=== PATIENT | male | born 1935 | race Caucasian/White ===

== ENCOUNTER 2016-12-26 10:16 | Emergency (ER) | payer MEDICARE, OTHER ==
[2016-12-26] MEDS ORDERED: Sodium Chloride 0.9% 1,000 ML IV SCH (11:15)
--- NOTE | 2016-12-26 11:25 | EDM.PDOC ---
ED HPI GENERAL MEDICAL PROBLEM - General Chief Complaint: Respiratory Problem Stated Complaint: COUGH AND SOB Time Seen by Provider: 12/26/16 10:34 Source of Information: Reports: Patient, Family (), RN Notes Reviewed History Limitations: Reports: No Limitations - History of Present Illness INITIAL COMMENTS - FREE TEXT/NARRATIVE: The patient states that he is scheduled for an anterior cervical discectomy and fusion on 01/18/2017. He underwent a preoperative evaluation on 12/01/2016, which included a chest radiograph. Apparently an infiltrate was seen, and the patient was told that he has pneumonia, per Dajuan Shah, a midlevel for his PCP, Dr. Robles. A repeat chest radiograph on 12/16/2016 apparently showed the infiltrate be larger, therefore the patient was started on Levaquin 500 milligrams daily for 7 days, along with prednisone 20 mg BID for 5 days, followed by 10 mg daily , starting 12/17/2016. The patient just finished his last dose of prednisone today. He is scheduled to have a repeat chest radiograph on 12/28/2016. He states that at no time did he have a fever, cough, shortness of breath, or wheezing. He now presents because he states he has some dyspnea on exertion while climbing stairs last night. Again, still no fever, cough, wheeze, or dyspnea at rest. This morning, he states that he feels fine. Left Chest Pain Score (Numeric/FACES): 4 - Related Data Allergies Allergy/AdvReac Type Severity Reaction Status Date / Time morphine Allergy Hives Verified 12/26/16 10:22 avalox Allergy Other Uncoded 12/26/16 10:28 eggs Allergy Vomiting Uncoded 12/26/16 10:22 Home Meds: Home Meds Acetaminophen [Tylenol] 325 mg PO DAILY 12/26/16 [History] Albuterol Sulfate [Proair Hfa] 1 puff INH Q4H PRN 12/26/16 [History] Albuterol [Proventil Neb Soln] 2.5 mg NEB Q6HRRT PRN 12/26/16 [History] Benzonatate [Tessalon Perles] 100 mg PO DAILY 12/26/16 [History] Budesonide/Formoterol [Symbicort 160-4.5 MCG] 2 puff INH BID 12/26/16 [History] Carvedilol [Coreg] 3.125 mg PO BID 12/26/16 [History] Fluticasone Propionate [Flonase] 1 spray KATIE BID PRN 12/26/16 [History] Incruise 1 puff INH DAILY 12/26/16 [History] Isosorbide Mononitrate [Imdur] 60 mg PO BID 12/26/16 [History] Losartan [Cozaar] 50 mg PO DAILY 12/26/16 [History] Montelukast [Singulair] 10 mg PO BEDTIME 12/26/16 [History] Nitroglycerin [Nitrostat] 0.4 mg SL Q5M PRN 12/26/16 [History] Pantoprazole Sodium [Protonix] 40 mg PO BID 12/26/16 [History] Ranolazine [Ranexa] 500 mg PO BID 12/26/16 [History] Rosuvastatin Calcium [Crestor] 40 mg PO BEDTIME 12/26/16 [History] cycloSPORINE [Restasis] 1 each OP DAILY 12/26/16 [History] Past Medical History Cardiovascular History: Reports: CAD, High Cholesterol, Hypertension, [place] Respiratory History: Reports: COPD Gastrointestinal History: Reports: GERD Genitourinary History: Reports: BPH Oncologic (Cancer) History: Reports: Basal Cell Carcinoma (bilateral ears) - Past Surgical History HEENT Surgical History: Reports: Cataract Surgery Cardiovascular Surgical History: Reports: Coronary Artery Bypass (x 3 vessel 1983, followed by repeat CABG x 3 vessel 1993) Male Surgical History: Reports: TURP-Transurethral Resection of Prostate Neurological Surgical History: Reports: Lumbar Spine (fusion) Dermatological Surgical History: Reports: Other (See Below) (Excision of BCC off bilateral ears) Social & Family History - Tobacco Use Smoking Status *Q: Former Smoker Tobacco Use Within Last Twelve Months: No Years of Tobacco use: 25 Packs/Tins Daily: 1 Month Tobacco Last Used: Quit 1983 - Alcohol Use Alcohol Use History: Yes Alcohol Use Frequency: Socially - Recreational Drug Use Recreational Drug Use: No - Living Situation & Occupation Living situation: Reports: , with Spouse Occupation: Retired ED ROS GENERAL - Review of Systems Review Of Systems: See Below Constitutional: Reports: No Symptoms HEENT: Reports: No Symptoms Respiratory: Reports: No Symptoms Cardiovascular: Reports: No Symptoms Endocrine: Reports: No Symptoms GI/Abdominal: Reports: No Symptoms : Reports: No Symptoms Musculoskeletal: Reports: No Symptoms Skin: Reports: No Symptoms Neurological: Reports: No Symptoms Psychiatric: Reports: No Symptoms Hematologic/Lymphatic: Reports: No Symptoms Immunologic: Reports: No Symptoms ED EXAM, GENERAL - Physical Exam Exam: See Below Exam Limited By: No Limitations General Appearance: Alert, WD/WN, No Apparent Distress Eye Exam: Bilateral Eye: Normal Inspection Ears: Normal External Exam, Hearing Grossly Normal Nose: Normal Inspection, No Blood Throat/Mouth: Normal Inspection, Normal Lips, Normal Voice, No Airway Compromise Head: Atraumatic, Normocephalic Neck: Normal Inspection, Full Range of Motion Respiratory/Chest: No Respiratory Distress, Lungs Clear, Normal Breath Sounds, No Accessory Muscle Use. No: Decreased Breath Sounds, Crackles, Rhonchi, Wheezing, Prolonged Expiration Cardiovascular: Normal Peripheral Pulses, Regular Rate, Rhythm, No Gallop, No JVD, No Murmur, No Rub Peripheral Pulses: 4+: Radial (L), Radial (R) GI/Abdominal: Normal Bowel Sounds, Soft, Non-Tender, No Organomegaly, No Distention, No Abnormal Bruit, No Mass (Male) Exam: Deferred Rectal (Males) Exam: Deferred Back Exam: Normal Inspection, Full Range of Motion, NT Extremities: Normal Inspection, Normal Range of Motion, No Pedal Edema, Normal Capillary Refill Neurological: Alert, Oriented, Normal Cognition, No Motor/Sensory Deficits Psychiatric: Normal Affect Skin Exam: Warm, Dry, Intact, Normal Color, No Rash Lymphatic: No Adenopathy EKG INTERPRETATION EKG Date: 12/26/16 Time: 10:23 Rhythm: NSR Rate (Beats/Min): 66 [place]: Normal P-Wave: Present QRS: Wide (Nonspecific intraventricular conduction delay, likely incomplete RBBB ) ST-T: Normal QT: Normal Comparison: NA - No Prior EKG Course - Vital Signs Last Recorded V/S: Last Vital Signs Temp 36.1 C 12/26/16 10:22 Pulse 58 L 12/26/16 13:30 Resp 20 12/26/16 13:30 BP 130/80 12/26/16 13:30 Pulse Ox 98 12/26/16 13:30 - Orders/Labs/Meds Orders: Active Orders 24 hr Category Date Time Status EKG Documentation Completion [RC] STAT Care 12/26/16 10:41 Active Labs: Laboratory Tests 12/26/16 12/26/16 Range/Units 10:30 10:30 WBC 13.04 H (4.23-9.07) K/mm3 RBC 5.05 (4.63-6.08) M/mm3 Hgb 15.4 (13.7-17.5) gm/L Hct 45.4 (40.1-51.0) % MCV 89.9 (79.0-92.2) fl MCH 30.5 (25.7-32.2) pg MCHC 33.9 (32.2-35.5) g/dl RDW Std Deviation 46.7 H (35.1-43.9) fL Plt Count 241 (163-337) K/mm3 MPV 10.1 (9.4-12.3) fl Neutrophils % (Manual) 72 H (40-60) % Band Neutrophils % 5 (0-10) % Lymphocytes % (Manual) 10 L (20-40) % Atypical Lymphs % 0 % Monocytes % (Manual) 9 (2-10) % Eosinophils % (Manual) 0 L (0.8-7.0) % Basophils % (Manual) 0 L (0.2-1.2) Myelocytes % 4 Platelet Estimate Adequate Plt Morphology Comment Normal Spherocytes Few Stomatocytes Few Schistocytes Few RBC Morph Comment Not Reportable Sodium 137 (136-145) mEq/L Potassium 4.5 (3.5-5.1) mEq/L Chloride 103 (98-107) mEq/L Carbon Dioxide 27 (21-32) mEq/L Anion Gap 11.5 (5-15) BUN 24 H (7-18) mg/dL Creatinine 1.4 H (0.7-1.3) mg/dL Est Cr Clr Drug Dosing 39.36 mL/min Estimated GFR (MDRD) 49 (>60) mL/min BUN/Creatinine Ratio 17.1 (14-18) Glucose 114 (83-115) mg/dL Calcium 8.5 (8.5-10.1) mg/dL Total Bilirubin 0.5 (0.2-1.0) mg/dL AST 22 (15-37) U/L ALT 33 (16-63) U/L Alkaline Phosphatase 52 (46-116) U/L Total Protein 7.2 (6.4-8.2) g/dl Albumin 3.1 L (3.4-5.0) g/dl Globulin 4.1 gm/dL Albumin/Globulin Ratio 0.8 L (1-2) Meds: Medications Discontinued Medications Generic Name Dose Route Start Last Admin Trade Name Freq PRN Reason Stop Dose Admin Sodium Chloride 1,000 mls @ 150 mls/hr 12/26/16 11:15 12/26/16 11:12 Normal Saline IV 150 mls/hr ASDIRECTED VENITA Administration Sodium Chloride 100 mls @ 65 mls/hr 12/26/16 12:00 12/26/16 12:14 Normal Saline IV 40 mls/hr ASDIRECTED VENITA Administration Iopamidol 100 ml 12/26/16 11:52 12/26/16 12:14 [id number] (76%) IVPUSH 12/26/16 11:53 80 ml ONETIME ONE Administration Sodium Chloride 10 ml 12/26/16 11:52 12/26/16 12:14 Saline Flush FLUSH 10 ml ONETIME PRN Administration IV FLUSH - Re-Assessments/Exams Free Text/Narrative Re-Assessment/Exam: 12/26/16 13:14 CT of the chest with IV contrast is read by Dr. Rock as: 1. Small subpleural nodule within the right lung base measuring 3 mm. Recommend follow-up noncontrast chest CT in one year. 2. Emphysematous change. 3. Other incidental findings. 12/26/16 13:22 Test results discussed with the patient and his . Today's workup is grossly unremarkable. There is a 3 mm nodule in the right lung that needs to be followed , but there is no suggestion of a left-sided infiltrate. I do not have access to the chest radiographs that the patient had on 12/01/2016 or 12/14/2016, so I cannot comment on what was seen or thought to be seen at that time, however, infiltrates from pneumonia typically take about one month to clear, therefore in the absence of even a suggestion of an infiltrate at this time, it does not appear that the patient had pneumonia. Departure - Departure Time of Disposition: 13:24 Disposition: Home, Self-Care 01 Condition: Good Clinical Impression: Abnormal chest x-ray - Discharge Information Referrals: Terry Robles MD [Primary Care Provider] - Forms: ED Department Discharge Additional Instructions: You were seen in the emergency room for some shortness of breath last night, and recently being told that you had pneumonia. Workup in the ER included blood work, an ECG, and a CT scan of your chest with IV contrast. Your entire workup was unremarkable. There is no suggestion that you have, or even had, pneumonia. On examination, your lungs were found be clear, with good air movement. You had no fever, and your oxygen saturation was 99% on room air. The CT did find a 3 mm nodule in your right lung that needs to be followed. The Radiologist is recommending that you have a repeat CT scan of your chest, without contrast, in one year. Since your [employer] and [employer] have found you fit for surgery, I see no objection to your proceeding with an anterior cervical discectomy and fusion on 01/18/2017. If any other problems, please do not hesitate to return to the ER. - My Orders Last 24 Hours: My Active Orders 12/26/16 10:41 EKG Documentation Completion [RC] STAT - Assessment/Plan Last 24 Hours: My Active Orders 12/26/16 10:41 EKG Documentation Completion [RC] STAT
[2016-12-26] MEDS ORDERED: Iopamidol 755 Mg/ML 100 ML Bottle IVPUSH ONE (11:52)
[2016-12-26] MEDS ORDERED: Sodium Chloride 0.9% 10 ML Syringe FLUSH PRN (11:52)
[2016-12-26] MEDS ORDERED: Sodium Chloride 0.9% 100 ML IV SCH (12:00)
--- NOTE | 2016-12-26 12:39 | CT ---
CT chest Technique: Multiple axial sections through the chest were obtained. Intravenous contrast was utilized. Comparison: No previous chest imaging. Findings: Small subpleural nodule is identified within the right lung base. This finding measures 3 mm. Lungs otherwise are clear. Emphysematous change is seen. No additional nodule is identified. Atherosclerotic calcification is seen within the thoracic aorta. Previous sternotomy is noted for CABG. No pericardial thickening is seen. Small cyst is noted next to the gallbladder within the right lobe of the liver measuring 1.3 cm. Small hiatal hernia is seen. Other visualized upper abdominal structures appear within normal limits. Bone window settings were reviewed which shows no discrete rib abnormality. Mild degenerative change is noted within the spine. Several slight anterior wedge deformities within the lower thoracic spine are seen which are felt to be incidental. Impression: 1. Small subpleural nodule within the right lung base measuring 3 mm. Recommend follow-up noncontrast chest CT in one year. 2. Emphysematous change. 3. Other incidental findings. Diagnostic code #9
[2016-12-26 15:18] VITALS: BP 130/80
== END 2016-12-26 13:40 | disposition home or self-care (01) ==
LOC: JD.ED 10:16
DX: R93.1 Abnormal findings on diagnostic imaging of heart and coronary circulation (principal); I25.10 Atherosclerotic heart disease of native coronary artery without angina pectoris; E78.00 Pure hypercholesterolemia, unspecified; I10 Essential (primary) hypertension; I25.2 Old myocardial infarction; Z95.1 Presence of aortocoronary bypass graft; Z98.49 Cataract extraction status, unspecified eye; K21.9 Gastro-esophageal reflux disease without esophagitis; J44.9 Chronic obstructive pulmonary disease, unspecified; Z87.891 Personal history of nicotine dependence; Z88.5 Allergy status to narcotic agent; Z91.018 Allergy to other foods; Z79.899 Other long term (current) drug therapy
CPT/HCPCS: 36415; 71260; 80053; 85025; 93005; 96360; 96361; 99285; J7030; J7040; J7050; Q9967; 99284

== ENCOUNTER 2021-02-15 01:40 | Emergency (ER) | payer MEDICARE, OTHER ==
[2021-02-15] MEDS ORDERED: Sodium Chloride 0.9% 10 ML Syringe FLUSH PRN (03:23)
[2021-02-15] MEDS ORDERED: Lactated Ringers 1,000 ML IV SCH (03:30)
--- NOTE | 2021-02-15 05:00 | EDM.PDOC ---
ED HPI GENERAL MEDICAL PROBLEM - General Chief Complaint: Abdominal Pain Stated Complaint: HANG RIZZO AMB Time Seen by Provider: 02/15/21 03:25 - History of Present Illness INITIAL COMMENTS - FREE TEXT/NARRATIVE: Patient arrived ED via ambulance He is accompanied by his Reports normal bowel movement 3 days ago Subsequently has had abdominal bloating and discomfort Has experienced severe waves of pain associated with urge to defecate, but inability to do so Tonight he experienced nausea and chills He has had 2 bowel movements since arrival to ED, with some subjective overall improvement These were both associated with occurrence of severe pain, severity 10/10 Current pain severity is rated 2/10 he is currently receiving chemotherapy for melanoma Abdomen Pain Score (Numeric/FACES): 8 - Related Data Allergies Allergy/AdvReac Type Severity Reaction Status Date / Time morphine Allergy Hives Verified 02/15/21 01:57 avalox Allergy Other Uncoded 02/15/21 01:57 Home Meds: Home Meds Acetaminophen [Tylenol] 325 mg PO DAILY PRN 12/26/16 [History] Albuterol Sulfate [Proair Hfa] 1 puff INH Q4H PRN 12/26/16 [History] Albuterol [Proventil Neb Soln] 2.5 mg NEB Q6HRRT PRN 12/26/16 [History] Benzonatate [Tessalon Perles] 100 mg PO DAILY PRN 12/26/16 [History] Budesonide/Formoterol [Symbicort 160-4.5 MCG] 2 puff INH BID 12/26/16 [History] Fluticasone Propionate [Flonase] 1 spray KATIE BID PRN 12/26/16 [History] Isosorbide Mononitrate [Imdur] 60 mg PO BID 12/26/16 [History] Montelukast [Singulair] 10 mg PO BEDTIME 12/26/16 [History] Nitroglycerin [Nitrostat] 0.4 mg SL Q5M PRN 12/26/16 [History] Pantoprazole Sodium [Protonix] 40 mg PO BID 12/26/16 [History] carvediloL [Coreg] 3.125 mg PO BID 12/26/16 [History] cycloSPORINE [Restasis] 1 drop EYEBOTH DAILY 12/26/16 [History] Aspirin [Halfprin] 81 mg PO DAILY 01/19/19 [History] Rosuvastatin Calcium 20 mg PO MOWEFR 01/19/19 [History] Acyclovir 800 mg PO DAILY 02/15/21 [History] Amoxicillin/Clavulanate K [Augmentin 875-125 MG] 1 tab PO Q8H #25 tab 02/15/21 [Rx] Bortezomib [Velcade] 3.5 mg IM WEEKLY 02/15/21 [History] Clopidogrel Bisulfate [Plavix] 75 mg PO DAILY 02/15/21 [History] dexAMETHasone [Dexamethasone] 5 tab PO WEEKLY 02/15/21 [History] Past Medical History Cardiovascular History: Reports: CAD, High Cholesterol, Hypertension, [place], Stents Respiratory History: Reports: COPD Gastrointestinal History: Reports: GERD Genitourinary History: Reports: BPH Oncologic (Cancer) History: Reports: Basal Cell Carcinoma - Past Surgical History HEENT Surgical History: Reports: Cataract Surgery Cardiovascular Surgical History: Reports: Coronary Artery Bypass Male Surgical History: Reports: TURP-Transurethral Resection of Prostate Neurological Surgical History: Reports: Lumbar Spine Dermatological Surgical History: Reports: Other (See Below) Social & Family History - Tobacco Use Tobacco Use Status *Q: Former Tobacco User Used Tobacco, but Quit: Yes Month/Year Tobacco Last Used: 1983 - Caffeine Use Caffeine Use: Reports: None - Recreational Drug Use Recreational Drug Use: No - Living Situation & Occupation Living situation: Reports: , with Spouse Occupation: Retired ED ROS GENERAL - Review of Systems Review Of Systems: See Below Free Text/Narrative/Comment: Constitutional - no fever; chills Eyes - no eye pain; no visual disturbance ENT - no rhinorrhea; no congestion; no epistaxis Cardiovascular - no chest pain Respiratory - no shortness of breath; no cough Gastrointestinal - abdominal pain; nausea; no vomiting; no diarrhea Genitourinary - no dysuria Musculoskeletal - no neck pain; no back pain; no extremity injury Neurological - no headache; no speech disturbance; no weakness ED EXAM, GENERAL - Physical Exam Exam: See Below Free Text/Narrative:: Constitutional - awake; alert; no acute distress Head - no facial swelling or weakness Eyes - extra ocular motion intact; conjunctiva normal ENT - no nasal deformity; no epistaxis; normal phonation; mucus membranes moist; Neck - no swelling Respiratory - normal respiratory effort; no crackles or wheezing; no stridor Cardiovascular - regular rhythm; normal rate; S1; S2; grade 1/6 systolic murmur GI/Abdomen -diminished bowel sounds; mild to moderate distention; mild, generalized tenderness; no rebound; no guarding; no mass Musculoskeletal - grossly normal strength and motion; no swelling or deformity Skin - warm; dry Neurologic - normal speech; no weakness Psychiatric - normal mood and affect; memory and attention normal Course - Vital Signs Text/Narrative:: . Considered etiologies included: Abdominal pain, nausea, bloating, distention, constipation, bowel obstruction, diverticulitis Symptoms and examination were discussed Investigations were initiated Empiric treatment was provided with IV fluid infusion Results were discussed, with findings for acute diverticulitis Treatment was initiated with IV piperacillin/tazobactam Considerations for inpatient versus outpatient therapy were discussed Patient and felt comfortable with oral antibiotic therapy Amoxicillin/clavulanate was prescribed Patient was felt to be stable for outpatient follow-up Return precautions were provided Last Recorded V/S: Last Vital Signs Temp 36.9 C 02/15/21 09:17 Pulse 74 02/15/21 09:17 Resp 20 02/15/21 09:17 BP 91/39 L 02/15/21 09:17 Pulse Ox 92 L 02/15/21 09:17 - Orders/Labs/Meds Labs: Laboratory Tests 02/15/21 02/15/21 02/15/21 Range/Units 03:50 03:50 03:50 WBC 10.83 H (4.23-9.07) K/mm3 RBC 3.55 L (4.63-6.08) M/mm3 Hgb 11.1 L D (13.7-17.5) gm/dl Hct 34.1 L (40.1-51.0) % MCV 96.1 H D (79.0-92.2) fl MCH 31.3 (25.7-32.2) pg MCHC 32.6 (32.2-35.5) g/dl RDW Std Deviation 48.3 H (35.1-43.9) fL Plt Count 92 L D (163-337) K/mm3 MPV 12.6 H (9.4-12.3) fl Neut % (Auto) 75.7 H (34.0-67.9) % Lymph % (Auto) 7.0 L (21.8-53.1) % [place] % (Auto) 13.9 H (5.3-12.2) % Eos % (Auto) 1.3 (0.8-7.0) Baso % (Auto) 0.4 (0.1-1.2) % Neut # (Auto) 8.20 H (1.78-5.38) K/mm3 Lymph # (Auto) 0.76 L (1.32-3.57) K/mm3 [place] # (Auto) 1.51 H (0.30-0.82) K/mm3 Eos # (Auto) 0.14 (0.04-0.54) K/mm3 Baso # (Auto) 0.04 (0.01-0.08) K/mm3 Manual Slide Review Abnormal smear Sodium 142 (136-145) mEq/L Potassium 4.3 (3.5-5.1) mEq/L Chloride 108 H (98-107) mEq/L Carbon Dioxide 25 (21-32) mEq/L Anion Gap 13.3 (5-15) BUN 27 H (7-18) mg/dL Creatinine 2.0 H (0.7-1.3) mg/dL Est Cr Clr Drug Dosing 24.79 mL/min Estimated GFR (MDRD) 32 (>60) mL/min BUN/Creatinine Ratio 13.5 L (14-18) Glucose 131 H (70-99) mg/dL Lactic Acid 1.5 (0.4-2.0) mmol/L Calcium 7.5 L (8.5-10.1) mg/dL Total Bilirubin 0.8 (0.2-1.0) mg/dL AST 14 L (15-37) U/L ALT 25 (16-63) U/L Alkaline Phosphatase 50 (46-116) U/L Total Protein 6.0 L (6.4-8.2) g/dl Albumin 3.0 L (3.4-5.0) g/dl Globulin 3.0 gm/dL Albumin/Globulin Ratio 1.0 (1-2) Lipase 63 L (73-393) U/L Urine Color (Yellow) Urine Appearance (Clear) Urine pH (5.0-8.0) Ur Specific [place] (1.005-1.030) Urine Protein (Negative) Urine Glucose (UA) (Negative) Urine Ketones (Negative) Urine Occult Blood (Negative) Urine Nitrite (Negative) Urine Bilirubin (Negative) Urine Urobilinogen (0.2-1.0) Ur Leukocyte Esterase (Negative) Urine RBC (0-5) /hpf Urine WBC (0-5) /hpf Ur Epithelial Cells (0-5) /hpf Urine Bacteria (FEW) /hpf Urine Mucus (FEW) /hpf 02/15/21 Range/Units 09:20 WBC (4.23-9.07) K/mm3 RBC (4.63-6.08) M/mm3 Hgb (13.7-17.5) gm/dl Hct (40.1-51.0) % MCV (79.0-92.2) fl MCH (25.7-32.2) pg MCHC (32.2-35.5) g/dl RDW Std Deviation (35.1-43.9) fL Plt Count (163-337) K/mm3 MPV (9.4-12.3) fl Neut % (Auto) (34.0-67.9) % Lymph % (Auto) (21.8-53.1) % [place] % (Auto) (5.3-12.2) % Eos % (Auto) (0.8-7.0) Baso % (Auto) (0.1-1.2) % Neut # (Auto) (1.78-5.38) K/mm3 Lymph # (Auto) (1.32-3.57) K/mm3 [place] # (Auto) (0.30-0.82) K/mm3 Eos # (Auto) (0.04-0.54) K/mm3 Baso # (Auto) (0.01-0.08) K/mm3 Manual Slide Review Sodium (136-145) mEq/L Potassium (3.5-5.1) mEq/L Chloride (98-107) mEq/L Carbon Dioxide (21-32) mEq/L Anion Gap (5-15) BUN (7-18) mg/dL Creatinine (0.7-1.3) mg/dL Est Cr Clr Drug Dosing mL/min Estimated GFR (MDRD) (>60) mL/min BUN/Creatinine Ratio (14-18) Glucose (70-99) mg/dL Lactic Acid (0.4-2.0) mmol/L Calcium (8.5-10.1) mg/dL Total Bilirubin (0.2-1.0) mg/dL AST (15-37) U/L ALT (16-63) U/L Alkaline Phosphatase (46-116) U/L Total Protein (6.4-8.2) g/dl Albumin (3.4-5.0) g/dl Globulin gm/dL Albumin/Globulin Ratio (1-2) Lipase (73-393) U/L Urine Color Yellow (Yellow) Urine Appearance Slt cloudy H (Clear) Urine pH 7.0 (5.0-8.0) Ur Specific [place] 1.020 (1.005-1.030) Urine Protein 1+ H (Negative) Urine Glucose (UA) Negative (Negative) Urine Ketones Trace H (Negative) Urine Occult Blood Negative (Negative) Urine Nitrite Negative (Negative) Urine Bilirubin 1+ H (Negative) Urine Urobilinogen 2.0 H (0.2-1.0) Ur Leukocyte Esterase Negative (Negative) Urine RBC 0-5 (0-5) /hpf Urine WBC 0-5 (0-5) /hpf Ur Epithelial Cells 0-5 (0-5) /hpf Urine Bacteria Not seen (FEW) /hpf Urine Mucus Not seen (FEW) /hpf Meds: Medications Discontinued Medications Generic Name Dose Route Start Last Admin Trade Name Jenna PRN Reason Stop Dose Admin Lactated Ringer's 1,000 mls @ 150 mls/hr 02/15/21 03:30 02/15/21 04:11 Ringers, Lactated IV 150 mls/hr ASDIRECTED VENITA Administration Ampicillin Sodium/Sulbactam 100 mls @ 200 mls/hr 02/15/21 07:07 Sodium 1.5 gm/ Sodium Chloride IV 02/15/21 07:36 ONETIME ONE Piperacillin Sod/Tazobactam 100 mls @ 25 mls/hr 02/15/21 07:12 02/15/21 07:55 Sod 3.375 gm/ Sodium Chloride IV 02/15/21 11:11 Not Given ONETIME ONE Piperacillin Sod/Tazobactam 100 mls @ 200 mls/hr 02/15/21 07:17 02/15/21 07:31 Sod 4.5 gm/ Sodium Chloride IV 02/15/21 07:46 200 mls/hr ONETIME ONE Administration Sodium Chloride 10 ml 02/15/21 03:23 02/15/21 04:14 Sodium Chloride 0.9% 10 Ml Syringe FLUSH 10 ml ASDIRECTED PRN Administration Keep Vein Open - Radiology Interpretation Free Text/Narrative:: CT abdomen/pelvis, noncontrast, preliminary radiology report: 1. Diverticulosis and bowel wall thickening along the rectosigmoid colon. Moderate pericolonic inflammatory changes. No evidence of perforation or abscess formation or bleeding. Findings consistent with acute diverticulitis 2. Right inguinal hernia contains fluid. No bowel 3. Gallstones in the gallbladder Departure - Departure Time of Disposition: 09:08 Disposition: Home, Self-Care 01 Clinical Impression: Acute diverticulitis - Discharge Information *PRESCRIPTION DRUG MONITORING PROGRAM REVIEWED*: No *COPY OF PRESCRIPTION DRUG MONITORING REPORT IN PATIENT ARIADNA: Not Applicable Prescriptions: Amoxicillin/Clavulanate K [Augmentin 875-125 MG] 1 tab PO Q8H #25 tab Instructions: Diverticulitis Referrals: PCP,None [Primary Care Provider] - Forms: ED Department Discharge Additional Instructions: Return if condition worsens May resume general activity and light diet as tolerated Continue usual medications Take AMOXICILLIN/CLAVULANATE antibiotic as prescribed, until completed Follow-up with primary care provider is recommended in 3 to 4 days
[2021-02-15] MEDS ORDERED: Ampicillin/Sulbactam Na 1.5 GM in Sodium Chloride 0.9% 100 ML IV ONE (07:07)
[2021-02-15] MEDS ORDERED: Piperacillin/Tazobactam 3.375 GM in Sodium Chloride 0.9% 100 ML IV ONE (07:12)
[2021-02-15] MEDS ORDERED: Piperacillin/Tazobactam 4.5 GM in Sodium Chloride 0.9% 100 ML IV ONE (07:17)
[2021-02-15 09:18] VITALS: BP 91/39; PULSE 74
--- NOTE | 2021-02-15 10:25 | CR ---
Abdomen: Supine and upright views of the abdomen were obtained. Sternotomy is noted. Prior lumbar spine surgery is seen. Bowel gas pattern is felt to be within normal limits. No free air is appreciated. Impression: 1. Findings as noted above. 2. Nothing acute is definitely seen. Diagnostic code #2
--- NOTE | 2021-02-15 11:32 | CT ---
CT abdomen and pelvis Technique: Multiple axial sections were obtained from above the dome of the diaphragm inferiorly through the pubic symphysis. Small amount of oral contrast is noted. No intravenous contrast was utilized. Reconstructed coronal and sagittal images were obtained. Comparison: No prior CT abdomen or pelvis study is available. Findings: Visualized lung bases shows minimal atelectasis within the right base. Diffuse coronary artery calcification is seen. Prior sternotomy is noted. Liver shows a small cyst next to the gallbladder measuring 1.4 cm. No additional abnormality is appreciated within the liver. Gallbladder shows minimal density possibly due to minimal gallstones. Small to moderate size hiatal hernia is seen. Contrast is noted within the distal esophagus presumably due to gastroesophageal reflux. Spleen size is normal. Pancreas shows no discrete abnormality. Cyst is noted within the lower pole of the right kidney measuring 5.2 cm. Small hyperdense lesion is seen within the more superior right kidney measuring 7 mm which is most likely due to a small hemorrhagic cyst. Left kidney shows several very small cysts. Largest cyst within the left kidney measures approximately 1.3 cm. Ureters show no dilatation or ureteral stone. Abdominal aorta shows atherosclerotic calcification. Minimal aneurysm is seen within the distal esophagus measuring 2.6 cm. Atherosclerotic change continues into the iliac vessels. No retroperitoneal adenopathy or mesenteric abnormalities are seen. Inflammatory change is seen around the sigmoid colon with diverticuli compatible with diverticulitis. No focal fluid collections are seen. Right inguinal hernia is seen which contains a loop of small bowel. No small bowel dilatation is seen. Appendix is not visualized. Bone window settings were reviewed. Previous surgery noted at L4-5 with trans-pedicle screws. Other scattered degenerative change is noted. Impression: 1. Diverticulitis involving the sigmoid colon. No complicating process is otherwise seen at this time. 2. Right inguinal hernia containing a loop of nondilated small bowel. 3. Gastroesophageal reflux seen of contrast. 4. Possible minimal gallstones. 5. Other findings believed to be nonacute as described above. Diagnostic code #3 I agree with preliminary report from [facility], finalized on 02/15/21, 7:38 AM CDT, code 1
== END 2021-02-15 09:45 | disposition home or self-care (01) ==
LOC: JD.ED 01:40
DX: K57.32 Diverticulitis of large intestine without perforation or abscess without bleeding (principal); I25.10 Atherosclerotic heart disease of native coronary artery without angina pectoris; E78.00 Pure hypercholesterolemia, unspecified; I10 Essential (primary) hypertension; I25.2 Old myocardial infarction; J44.9 Chronic obstructive pulmonary disease, unspecified; K21.9 Gastro-esophageal reflux disease without esophagitis; Z88.5 Allergy status to narcotic agent; Z88.1 Allergy status to other antibiotic agents; Z79.82 Long term (current) use of aspirin; Z79.02 Long term (current) use of antithrombotics/antiplatelets; Z79.899 Other long term (current) drug therapy; Z87.891 Personal history of nicotine dependence
CPT/HCPCS: 36415; 74019; 74176; 80053; 81001; 83605; 83690; 85025; 96365; 99284; J2543; J7120

== ENCOUNTER 2021-04-15 13:34 | Emergency (ER) | payer MEDICARE, OTHER ==
[2021-04-15 14:28] VITALS: BP 129/80; PULSE 58
--- NOTE | 2021-04-15 16:31 | US ---
Bilateral lower extremity deep venous ultrasound: Duplex and color Doppler evaluation was obtained of the right and left common femoral, proximal greater saphenous, superficial femoral, popliteal, posterior tibial and peroneal veins. Comparison: No prior venous imaging is available. Findings: Visualized veins show normal phasic flow, augmentation and compression. Soft tissue edema is identified within the subcutaneous tissues of both lower extremities. Impression: 1. Subcutaneous edema within both lower extremities. 2. No findings of deep venous thrombosis is seen within the right or left lower extremity. Diagnostic code #2
--- NOTE | 2021-04-15 16:44 | CR ---
Chest: Portable view of the chest was obtained. Comparison: Prior chest x-ray of 01/19/19. Heart is slightly enlarged. Tortuous thoracic aorta is seen. Lungs are clear with no acute parenchymal change. Prior surgery within the cervical spine is noted as well as prior sternotomy. No acute osseous abnormality is seen. Impression: 1. Stable cardiomegaly. Other findings which are also stable. 2. Nothing acute is seen on portable chest x-ray. Diagnostic code #2
[2021-04-15] MEDS ORDERED: Sodium Chloride 0.9% 1,000 ML IV SCH (17:00)
[2021-04-15] MEDS ORDERED: Iopamidol 755 Mg/ML 100 ML Bottle IVPUSH ONE (17:06)
[2021-04-15] MEDS ORDERED: Sodium Chloride 0.9% 10 ML Syringe FLUSH PRN (17:06)
--- NOTE | 2021-04-15 18:08 | CT ---
CT chest Technique: Multiple axial sections were obtained from above the lung apices inferiorly through the lung bases. Intravenous contrast was utilized. Study has been performed as a pulmonary angiogram protocol. Findings: Pulmonary arteries are well opacified. No filling defects are seen to indicate pulmonary embolism. Thoracic aorta shows atherosclerotic change with no aneurysm. Surgical clips are seen within the mediastinum. No pericardial thickening is seen. No adenopathy is seen within the mediastinum or within the hilar regions. Heart is slightly enlarged. Visualized upper abdominal structures show increased density due to multiple small layering gallstones. Small cyst is noted next to the gallbladder measuring 1.2 cm. Cyst is also noted within the lower right kidney measuring 4.7 cm. Lung window settings were reviewed. Small scattered cystic change is seen within the left lung base. Small subpleural nodule is noted within the right lung base which is believed to be benign and is seen on prior study. Slight linear scarring is noted within the left upper lung which is stable. No acute parenchymal change is seen. Bone window settings were reviewed. Scattered degenerative change is noted within the spine. No acute osseous finding is seen. Sternotomy wires are seen within the sternum which appear chronic. Impression: 1. No findings of pulmonary embolism. 2. Small layering gallstones within the gallbladder. Other findings which are felt to be incidental as described above. 3. Nothing acute is appreciated. Diagnostic code #2
--- NOTE | 2021-04-15 19:25 | EDM.PDOC ---
ED HPI GENERAL MEDICAL PROBLEM - General Chief Complaint: Cardiovascular Problem Stated Complaint: TESTS Time Seen by Provider: 04/15/21 14:23 Source of Information: Reports: Patient History Limitations: Reports: No Limitations - History of Present Illness INITIAL COMMENTS - FREE TEXT/NARRATIVE: The patient presents from [facility]. He has a history of multiple myoloma and sees Dr Gao. He went there for treatment today and told Dr Gao that he has been having chest pain today and shortness of breath for about a week. He is more short of breath with exertion. He is getting chemo and Dr Gao was worried he may have a PE. One of the meds makes him prone to clots. He has a significant cardiac history. 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 He had another bypass in 1993. He has no fever, chills, cough, congestion, runny nose, abdominal pain, nausea or vomiting. He has swelling in both legs. Onset: Gradual Duration: Week(s): Severity: Moderate Improves with: Reports: None Worsens with: Reports: None Associated Symptoms: Reports: Chest Pain, Shortness of Breath. Denies: Cough, Fever/Chills, Headaches, Nausea/Vomiting Left Chest Pain Score (Numeric/FACES): 3 - Related Data Allergies Allergy/AdvReac Type Severity Reaction Status Date / Time adhesive tape Allergy Cannot Verified 04/15/21 14:54 Remember morphine Allergy Hives Verified 02/15/21 01:57 moxifloxacin Allergy Cannot Verified 04/15/21 14:53 Remember Home Meds: Home Meds Acetaminophen [Tylenol] 325 mg PO DAILY PRN 12/26/16 [History] Albuterol Sulfate [Proair Hfa] 1 puff INH Q4H PRN 12/26/16 [History] Albuterol [Proventil Neb Soln] 2.5 mg NEB Q6HRRT PRN 12/26/16 [History] Benzonatate [Tessalon Perles] 100 mg PO TID PRN 12/26/16 [History] Budesonide/Formoterol [Symbicort 160-4.5 MCG] 2 puff INH BID 12/26/16 [History] Isosorbide Mononitrate [Imdur] 60 mg PO BID 12/26/16 [History] Montelukast [Singulair] 10 mg PO BEDTIME 12/26/16 [History] Nitroglycerin [Nitrostat] 0.4 mg SL Q5M PRN 12/26/16 [History] Pantoprazole Sodium [Protonix] 40 mg PO BID 12/26/16 [History] carvediloL [Coreg] 3.125 mg PO BID 12/26/16 [History] cycloSPORINE [Restasis] 1 drop EYEBOTH DAILY 12/26/16 [History] Aspirin [Halfprin] 81 mg PO DAILY 01/19/19 [History] Rosuvastatin Calcium 20 mg PO MOWEFR 01/19/19 [History] Acyclovir 400 mg PO BID 02/15/21 [History] Bortezomib [Velcade] 3.5 mg IM WEEKLY 02/15/21 [History] Clopidogrel Bisulfate [Plavix] 75 mg PO DAILY 02/15/21 [History] Azelastine [Astelin Nasal Soln] 2 sprays NASBOTH BID 04/15/21 [History] Cholecalciferol (Vitamin D3) [Vitamin D3] 2,000 unit PO DAILY 04/15/21 [History] Non-Formulary Medication [NF Drug] 1 cap PO DAILY 04/15/21 [History] Past Medical History Cardiovascular History: Reports: CAD, High Cholesterol, Hypertension, AK, Stents Respiratory History: Reports: COPD Gastrointestinal History: Reports: GERD Genitourinary History: Reports: BPH Oncologic (Cancer) History: Reports: Basal Cell Carcinoma - Infectious Disease History Infectious Disease History: Reports: Chicken Pox, Measles, Mumps - Past Surgical History HEENT Surgical History: Reports: Cataract Surgery Cardiovascular Surgical History: Reports: Coronary Artery Bypass Male Surgical History: Reports: TURP-Transurethral Resection of Prostate Neurological Surgical History: Reports: Lumbar Spine Dermatological Surgical History: Reports: Other (See Below) Social & Family History - Family History Family Medical History: No Pertinent Family History - Tobacco Use Tobacco Use Status *Q: Former Tobacco User Used Tobacco, but Quit: Yes Month/Year Tobacco Last Used: 11/1983 - Caffeine Use Caffeine Use: Reports: Coffee - Recreational Drug Use Recreational Drug Use: No - Living Situation & Occupation Living situation: Reports: , with Spouse Occupation: Retired ED ROS GENERAL - Review of Systems Review Of Systems: See Below Constitutional: Reports: No Symptoms HEENT: Reports: No Symptoms Respiratory: Reports: Shortness of Breath Cardiovascular: Reports: Chest Pain, Edema (Both legs) Endocrine: Reports: No Symptoms GI/Abdominal: Reports: No Symptoms : Reports: No Symptoms Musculoskeletal: Reports: No Symptoms ED EXAM, GENERAL - Physical Exam Exam: See Below Exam Limited By: No Limitations General Appearance: Alert, No Apparent Distress Ears: Normal External Exam Nose: Normal Inspection Head: Atraumatic, Normocephalic Neck: Normal Inspection Respiratory/Chest: No Respiratory Distress, Decreased Breath Sounds Cardiovascular: Regular Rate, Rhythm, No Murmur, Other (2 pluse edema in both legs) GI/Abdominal: Soft, Non-Tender, No Organomegaly, No Mass Back Exam: Normal Inspection Extremities: Other (2 plus edema both legs) #1 Interpretation EKG Date: 04/15/21 Time: 14:16 Rhythm: Other (sinus rhythm) Rate (Beats/Min): 58 [place]: Normal P-Wave: Present QRS: Other (nonspecific interventricular conduction delay) ST-T: Normal QT: Normal Course - Vital Signs Last Recorded V/S: Last Vital Signs Temp 96.2 F L 04/15/21 14:23 Pulse 58 L 04/15/21 14:23 Resp 16 04/15/21 14:23 BP 129/80 04/15/21 14:23 Pulse Ox 99 04/15/21 14:23 - Orders/Labs/Meds Orders: Active Orders 24 hr Category Date Time Status Sodium Chloride 0.9% [Normal Saline] 1,000 ml Med 04/15/21 17:00 Active IV ASDIRECTED Sodium Chloride 0.9% [Saline Flush] Med 04/15/21 17:06 Active 10 ml FLUSH ONETIME PRN Medication Orders Sodium Chloride (Normal Saline) 1,000 mls @ 100 mls/hr IV ASDIRECTED VENITA Last Admin: 04/15/21 17:06 Dose: 100 mls/hr Documented by: HERMMIC Sodium Chloride (Sodium Chloride 0.9% 10 Ml Syringe) 10 ml FLUSH ONETIME PRN PRN Reason: Keep Vein Open Last Admin: 04/15/21 17:34 Dose: 10 ml Documented by: [id number] Labs: Laboratory Tests 04/15/21 04/15/21 04/15/21 Range/Units 14:35 14:50 18:51 Troponin I 0.078 H* 0.082 H* (0.00-0.056) ng/mL SARS-CoV-2 RNA (RANDI) Negative (NEGATIVE) Meds: Medications Generic Name Dose Route Start Last Admin Trade Name Jenna PRN Reason Stop Dose Admin Sodium Chloride 1,000 mls @ 100 mls/hr 04/15/21 17:00 04/15/21 17:06 Normal Saline IV 100 mls/hr ASDIRECTED VENITA Administration Sodium Chloride 10 ml 04/15/21 17:06 04/15/21 17:34 Sodium Chloride 0.9% 10 Ml Syringe FLUSH 10 ml ONETIME PRN Administration Keep Vein Open Discontinued Medications Generic Name Dose Route Start Last Admin Trade Name Freq PRN Reason Stop Dose Admin Aspirin 324 mg 04/15/21 20:03 04/15/21 20:24 Aspirin 81 Mg Tab.Chew PO 04/15/21 20:04 Not Given ONETIME ONE Furosemide 40 mg 04/15/21 20:27 Furosemide 40 Mg/4 Ml Vial IVPUSH 04/15/21 20:28 NOW ONE Iopamidol 100 ml 04/15/21 17:06 04/15/21 17:34 Iopamidol 755 Mg/Ml 100 Ml Bottle IVPUSH 04/15/21 17:07 100 ml ONETIME ONE Administration - Re-Assessments/Exams Free Text/Narrative Re-Assessment/Exam: 04/15/21 19:27 I ordered an IV saline lock, EKG, CXR, CT angio and US of both legs. He took aspirin this morning. His labs were done at [facility]. His creatinine was elevated at 1.83. His GFR was 35. His Hgb was low at 10. His CXR shows stable cardiomegaly. Other findings which are also stable. Nothing acute is seen on portable chest x-ray. His US shows subcutaneous edema within both lower extremities. No findings of deep venous thrombosis is seen within the right or left lower extremity. His CT angio shows no findings of pulmonary embolism. Small layering gallstones within the gallbladder. Other findings which are felt to be incidental. His troponin was elevated at 0.078. His BNP was elevated at 3208. His D-dimer is elevated at 5.72. He is COVID negative. He has no chest pain now. I have ordered a repeat troponin. 04/15/21 20:17 I called [facility] in [place] and talked to the milieu technician supervisor nutritional yeast Dr Gandhi and felt this could be unstable angina and he recommended admission diuresis and repeat troponins, however they do not have a bed. I called [facility] in [place] and they had a bed. I talked with Dr Méndez the milieu technician supervisor nutritional yeast and he recommended admission, diuresis, troponins and echo in the morning. I also talked with the hospitalist Dr Pradhan and she agreed to the transfer. Departure - Departure Time of Disposition: 20:45 Disposition: DC/Tfer to [facility] 02 Reason for Transfer *Q: Other Condition: Poor Clinical Impression: Leg edema, Elevated troponin, Renal insufficiency, Shortness of breath Chest pain Qualifiers: Chest pain type: unspecified Qualified Code(s): R07.9 - Chest pain, unspecified Multiple myeloma Qualifiers: Multiple myeloma remission status: not in remission Qualified Code(s): C90.00 - Multiple myeloma not having achieved remission Referrals: Bryan Gao MD [Primary Care Provider] - Forms: ED Department Discharge Sepsis Event Note (ED) - Evaluation Sepsis Screening Result: No Definite Risk - Focused Exam Vital Signs: Vital Signs Temp Pulse Resp BP Pulse Ox 04/15/21 14:23 96.2 F L 58 L 16 129/80 99 - My Orders Last 24 Hours: My Active Orders 04/15/21 17:00 Sodium Chloride 0.9% [Normal Saline] 1,000 ml IV ASDIRECTED 04/15/21 17:06 Sodium Chloride 0.9% [Saline Flush] 10 ml FLUSH ONETIME PRN - Assessment/Plan Last 24 Hours: My Active Orders 04/15/21 17:00 Sodium Chloride 0.9% [Normal Saline] 1,000 ml IV ASDIRECTED 04/15/21 17:06 Sodium Chloride 0.9% [Saline Flush] 10 ml FLUSH ONETIME PRN
[2021-04-15] MEDS: Aspirin 81 MG Tab.Chew PO ONE ×2 (20:10→20:24)
[2021-04-15] MEDS ORDERED: Furosemide 40 MG/4 ML VIAL IVPUSH ONE (20:27)
== END 2021-04-15 21:35 ==
LOC: JD.ED 13:34
DX: R07.9 Chest pain, unspecified (principal); R06.02 Shortness of breath; C90.00 Multiple myeloma not having achieved remission; R60.0 Localized edema; R77.8 Other specified abnormalities of plasma proteins; N28.9 Disorder of kidney and ureter, unspecified; J44.9 Chronic obstructive pulmonary disease, unspecified; I10 Essential (primary) hypertension; E78.00 Pure hypercholesterolemia, unspecified; I25.2 Old myocardial infarction; K21.9 Gastro-esophageal reflux disease without esophagitis; Z87.891 Personal history of nicotine dependence; Z88.5 Allergy status to narcotic agent; Z88.1 Allergy status to other antibiotic agents; Z79.899 Other long term (current) drug therapy; Z20.822 Contact with and (suspected) exposure to COVID-19
CPT/HCPCS: 36415; 71045; 71275; 84484; 93005; 93970; 96374; 99285; J1940; J7030; Q9967; U0002; A9270-GY

== ENCOUNTER 2021-05-14 07:47 | Day surgery (SDC) | payer MEDICARE, OTHER ==
[~2021-05-14 07:47] MED LIST: Lidocaine 1%/Sod Bicarbonate in NS 8.4% 1 ML Syringe IDERM PRN; Sodium Chloride 0.9% 10 ML Syringe FLUSH PRN
[2021-05-14] MEDS: Lactated Ringers 1,000 ML IV SCH (08:18)
--- NOTE | 2021-05-14 08:33 | PCM.PREANE ---
Preanesthetic Assessment - Procedure Proposed Procedure: Right inguinal hernia repair with mesh - Anesthesia/Transfusion/Family Hx Anesthesia History: Prior Anesthesia Without Reaction Family History of Anesthesia Reaction: No Transfusion History: Prior Transfusion Without Reaction Intubation History: Unknown - Review of Systems General: No Symptoms Pulmonary: No Symptoms Cardiovascular: No Symptoms Gastrointestinal: Nausea Neurological: Tingling (bilateral feet) Other: Reports: Easy Bleeding, Easy Bruising - Physical Assessment NPO Status Date: 05/13/21 NPO Status Time: 18:00 Vital Signs: Last Vital Signs Temp 98.7 F 05/14/21 08:05 Pulse 81 05/14/21 08:05 Resp 16 05/14/21 08:05 BP 121/85 05/14/21 08:05 Pulse Ox 98 05/14/21 08:05 Height: 1.57 m Weight: 73.482 kg ASA Class: 3 Mental Status: Alert & Oriented x3 Dentition: Reports: Implants, Missing Tooth/Teeth Thyro-Mental Finger Breadths: 3 Mouth Opening Finger Breadths: 3 ROM/Head Extension: Full Lungs: Clear to Auscultation, Normal Respiratory Effort Cardiovascular: Regular Rate, Regular Rhythm, No Murmurs - Imaging/EKG Impressions: See paper chart for note from senior net web developer EKG 04/16/21 SB with BBB HR 59, see additional notes on paper EKG - Allergies Allergies/Adverse Reactions: Allergies Allergy/AdvReac Type Severity Reaction Status Date / Time adhesive tape Allergy Cannot Verified 05/14/21 08:09 Remember benazepril Allergy Cannot Verified 05/14/21 08:09 Remember lisinopril Allergy Cannot Verified 05/14/21 08:09 Remember morphine Allergy Hives Verified 05/14/21 08:09 moxifloxacin [From Avelox] Allergy Cannot Verified 05/14/21 08:09 Remember - Anesthesia Plan Beta [place]: Carvedilol Med Last Dose Date: 05/14/21 Med Last Dose Time: 06:00 - Acknowledgements Anesthesia Type Planned: General Anesthesia, MAC Pt an Appropriate Candidate for the Planned Anesthesia: Yes Alternatives and Risks of Anesthesia Discussed w Pt/Guardian: Yes Pt/Guardian Understands and Agrees with Anesthesia Plan: Yes Additional Comments: Patient complaining of heart burn during my pre-op assessment thus ordered pepcid, bictra, and reglan pre-op. Discussed with IZZY Nieto regarding patient's symptoms. Initial plan prior to heart burn discussion during pre-op assessment was a MAC but since patient currently having heart burn symptoms, I consented patient for also a general anesthetic. IZZY Nieto to assess patient prior and determine anesthetic plan for a MAC or a general anesthetic. PreAnesthesia Questionnaire HEENT History: Reports: Allergic Rhinitis Cardiovascular History: Reports: CAD, Heart Failure, High Cholesterol, Hypertension, CT, Other (See Below) Other Cardiovascular History: diastolic dysfunction, chest pain Respiratory History: Reports: COPD Gastrointestinal History: Reports: Chronic Constipation, GERD, Hemorrhoids, Hiatal Hernia, Other (See Below) Other Gastrointestinal History: dyspepsia Genitourinary History: Reports: BPH, Chronic Renal Insuffiency PHLEBOTOMIST SUPERVISOR/INSTRUCTOR History: Reports: None Musculoskeletal History: Reports: Osteoarthritis, Other (See Below) Other Musculoskeletal History: myofascial muscle pain Neurological History: Reports: Other (See Below) Other Neuro History: cervicogenic headache, cervical spine stenosis, cervical spondylosis, cervical degnerative disc disease, cervico-occipital neuralgia, post laminectomy syndrome Psychiatric History: Reports: None Endocrine/Metabolic History: Reports: None Hematologic History: Reports: Anticoagulation Therapy Immunologic History: Reports: Immunosuppression Oncologic (Cancer) History: Reports: Basal Cell Carcinoma, Other (See Below) Other Oncologic History: multiple myeloma Dermatologic History: Reports: Other (See Below) (actinic keratosis, senile hyperkeratosis) - Infectious Disease History Infectious Disease History: Reports: None - Past Surgical History Head Surgeries/Procedures: Reports: None HEENT Surgical History: Reports: Cataract Surgery Cardiovascular Surgical History: Reports: Coronary Artery Bypass (x3 in 1984; redo in 1993, angioplasty 2019), Percutaneous Transluminal Angioplasty Respiratory Surgical History: Reports: None GI Surgical History: Reports: Colonoscopy Female Surgical History: Reports: None Male Surgical History: Reports: TURP-Transurethral Resection of Prostate Endocrine Surgical History: Reports: None Neurological Surgical History: Reports: C-Spine, Laminectomy, Lumbar Spine Musculoskeletal Surgical History: Reports: None Oncologic Surgical History: Reports: None - SUBSTANCE USE Tobacco Use Status *Q: Former Tobacco User (quit 1983) Tobacco Use Within Last Twelve Months: No Second Hand Smoke Exposure: No Days Per Week of Alcohol Use: 1 Number of Drinks Per Day: 1 Total Drinks Per Week: 1 Recreational Drug Use History: No - HOME MEDS Home Medications: Home Meds Acetaminophen [Tylenol] 650 mg PO Q4H PRN 12/26/16 [History] Albuterol Sulfate [Proair Hfa] 1 puff INH Q4H PRN 12/26/16 [History] Albuterol [Proventil Neb Soln] 2.5 mg NEB Q6HRRT PRN 12/26/16 [History] Benzonatate [Tessalon Perles] 100 mg PO TID PRN 12/26/16 [History] Budesonide/Formoterol [Symbicort 160-4.5 MCG] 2 puff INH BID 12/26/16 [History] Montelukast [Singulair] 10 mg PO BEDTIME 12/26/16 [History] Nitroglycerin [Nitrostat] 0.4 mg SL Q5M PRN 12/26/16 [History] Pantoprazole Sodium [Protonix] 40 mg PO BID 12/26/16 [History] carvediloL [Coreg] 3.125 mg PO BID 12/26/16 [History] cycloSPORINE [Restasis] 1 drop EYEBOTH DAILY 12/26/16 [History] Aspirin [Halfprin] 81 mg PO DAILY 01/19/19 [History] Rosuvastatin Calcium 20 mg PO DAILY 01/19/19 [History] Acyclovir 400 mg PO BID 02/15/21 [History] Clopidogrel Bisulfate [Plavix] 75 mg PO DAILY 02/15/21 [History] Cholecalciferol (Vitamin D3) [Vitamin D3] 2,000 unit PO DAILY 04/15/21 [History] Non-Formulary Medication [NF Drug] 1 cap PO DAILY 04/15/21 [History] Albuterol/Ipratropium [DuoNeb 3.0-0.5 MG/3 ML] 1 dose NEB Q6H PRN 05/13/21 [History] Furosemide [Lasix] 20 mg PO DAILY 05/13/21 [History] Hydrocortisone Acetate [Anusol-Hc] 25 mg RECTAL ASDIRECTED PRN 05/13/21 [History] Isosorbide Mononitrate [Imdur] 30 mg PO BID 05/13/21 [History] Lenalidomide [Revlimid] 10 mg PO ASDIRECTED PRN 05/13/21 [History] Nystatin [Nystatin Crm] 1 dose TOP TID 05/13/21 [History] Potassium Chloride 20 meq PO DAILY 05/13/21 [History] Prochlorperazine Maleate [Compazine] 10 mg PO QID PRN 05/13/21 [History] Psyllium [Metamucil] 3 cap PO DAILY 05/13/21 [History] Ranolazine [Ranexa] 500 mg PO BID 05/13/21 [History] dexAMETHasone [Decadron] 4 mg PO ASDIRECTED PRN 05/13/21 [History] valACYclovir [Valtrex] 2 g PO BID PRN 05/13/21 [History] - CURRENT (IN HOUSE) MEDS Current Meds: Current Medications Acetaminophen (Acetaminophen 325 Mg Tab) 975 mg PO ONETIME VENITA Stop: 05/14/21 14:00 Gabapentin (Gabapentin 300 Mg Cap) 300 mg PO ONETIME VENITA Stop: 05/14/21 14:00 Lactated Ringer's (Ringers, Lactated) 1,000 mls @ 125 mls/hr IV ASDIRECTED VENITA Stop: 05/14/21 23:00 Last Admin: 05/14/21 08:18 Dose: 125 mls/hr Documented by: Lidocaine/Sodium Bicarbonate (Lidocaine 1%/Sod Bicarbonate In Ns 8.4% 1 Ml Syringe) 0.25 ml IDERM ONETIME PRN PRN Reason: Prior to IV Start Stop: 05/14/21 18:00 Pantoprazole Sodium (Pantoprazole 40 Mg Tab.Cr) 40 mg PO ONETIME VENITA Stop: 05/14/21 14:00 Sodium Chloride (Sodium Chloride 0.9% 10 Ml Syringe) 10 ml FLUSH ASDIRECTED PRN PRN Reason: Keep Vein Open Stop: 05/14/21 18:00
[2021-05-14] MEDS: Citric Acid/Sodium Citrate Solution 30 ML Cup PO ONE (09:14)
[2021-05-14] MEDS: Famotidine 20 MG/2 ML SDV IVPUSH ONE (09:14)
[2021-05-14] MEDS: Metoclopramide 10 MG/2 ML SDV IVPUSH ONE (09:17)
[2021-05-14] MEDS: Acetaminophen 325 MG Tab PO SCH (09:29)
[2021-05-14] MEDS: Pantoprazole 40 MG Tab.CR PO SCH (09:29)
[2021-05-14] MEDS: Gabapentin 300 MG Cap PO SCH (09:29)
[2021-05-14] MEDS ORDERED: fentaNYL 100 MCG/2 ML SDV ONE (09:44)
[2021-05-14] MEDS ORDERED: Propofol 200 MG/20 ML SDV ONE (09:44)
[2021-05-14] MEDS ORDERED: Midazolam 1 MG/ML 2 ML SDV ONE (09:45)
[2021-05-14] MEDS ORDERED: Lidocaine 1% 6 ML ONE (09:45)
[2021-05-14] MEDS ORDERED: Lactated Ringers 1,000 ML ONE (10:02)
[2021-05-14] MEDS ORDERED: ceFAZolin 1 GM Vial ONE (10:06)
[2021-05-14] MEDS ORDERED: Ondansetron 4 MG/2 ML SDV ONE (10:20)
[2021-05-14] MEDS: Bupivacaine 0.5% 30 ML SDV ONE (11:04)
[2021-05-14] MEDS: Lidocaine 1% with EPINEPHrine 1:100,000 20 ML MDV ONE (11:06)
--- NOTE | 2021-05-14 11:10 | PCM.OPNOTE ---
- General Post-Op/Procedure Note Date of Surgery/Procedure: 05/14/21 Operative Procedure(s): open right inguinal hernia repair with mesh Findings: direct right inguinal hernia and cord lipoma Pre Op Diagnosis: right inguinal hernia Post-Op Diagnosis: same Anesthesia Technique: Local, MAC Primary Surgeon: Alee Clark Anesthesia Provider: Gerson Hinkle Pathology: none Fluid Replacement, Intraop: 1,400 Output, Urine Amount: 0 EBL in mLs: 5 Complications: none apparent Condition: Good
--- NOTE | 2021-05-14 11:20 | PCM.PRNOTE ---
- Free Text/Narrative Note: Operative Report Date of surgery: May 14, 2021 Preoperative diagnosis: Right inguinal hernia Postoperative diagnosis: same Procedure: Open right inguinal hernia repair with mesh Surgeon: Dr. Alee Clark Anesthesia: Local and MAC Manager Provider Relations: Gerson Hinkle CRNA Estimated blood loss: 5 mL IV fluids: 1400 mL Urine output: 0 mL Drains and lines: none Findings: Large direct right inguinal hernia and right cord lipoma Pathology: same Indication for the procedure: Symptomatic right inguinal hernia Description of the procedure: The patient was brought in the operating room and placed on the table in supine position. Preoperative antibiotics were administered per SCIP guidelines. After the MAC anesthesia was administered, the right groin and abdomen were prepped and draped in the usual sterile fashion. An ilioinguinal nerve block was then administered with mixed 1% lidocaine and 0 .5% bupivacaine. The skin was then anesthetized with the same local mixture. An oblique incision was made in the right groin and deepened through the subcutaneous tissue. Danisha's fascia was divided. Good exposure of the fascia of external oblique muscle was obtained. The fascia was opened with the scalpel, and then devided with Tiki scissors through the external ring. The inguinal canal was entered. The inguinal contents were from the floor of the inguinal canal. The patient had a large direct inguinal hernia. There was also a small cord lipoma that was adherent to the hernia sac which was and ligated. The floor of the inguinal canal was then re-approximated with 2-0 Vicryl running suture. The inguinal canal was reinforced with a BARD mesh. The mesh was secured in pl brooks with interrupted 0 Vicryl suture at the pubic tubercle, and along the rectus abominis fascia and conjoint tendon. The mesh was then tucked superiorly under the external oblique fascia. The fascia of the external oblique muscle was closed on top of the mesh with continuous running 3-0 Vicryl. The wound was irrigated. Danisha's fascia was re- approximated with interrupted 3-0 Vicryl and 2-0 Vicryl sutures. The wound was closed with interrupted 3-0 Vicryl deep dermal sutures and overlying continuous running 4-0 Monocryl subcuticular closure for the skin. Dermabond was applied. The patient tolerated the procedure well and left the operating room in stable condition. No immediate complications were noted. Alee Clark MD General Surgery
--- NOTE | 2021-05-14 11:35 | PCM48HPAN ---
Post Anesthesia Note - EVALUATION WITHIN 48HRS OF ANESTHETIC Vital Signs in Normal Range: Yes Patient Participated in Evaluation: Yes Respiratory Function Stable: Yes Airway Patent: Yes Cardiovascular Function Stable: Yes Hydration Status Stable: Yes Pain Control Satisfactory: Yes Nausea and Vomiting Control Satisfactory: Yes Mental Status Recovered: Yes Vital Signs: Last Vital Signs Temp 97.5 F 05/14/21 11:20 Pulse 65 05/14/21 11:20 Resp 12 05/14/21 11:20 BP 97/66 05/14/21 11:20 Pulse Ox 92 L 05/14/21 11:20
[2021-05-14 13:20] VITALS: PULSE 68
[2021-05-14 13:22] VITALS: BP 128/82
[2021-05-14] MEDS: Benzocaine/Cetylpyridinium/Menthol Lozenge MUCMEM PRN (13:33)
== END 2021-05-14 13:25 | disposition home or self-care (01) ==
LOC: JD.SDS 07:47
PROVIDERS: ATTEND Surgery
DX: K40.90 Unilateral inguinal hernia, without obstruction or gangrene, not specified as recurrent (principal); D17.6 Benign lipomatous neoplasm of spermatic cord; I13.0 Hypertensive heart and chronic kidney disease with heart failure and stage 1 through stage 4 chronic kidney disease, or unspecified chronic kidney disease; I50.32 Chronic diastolic (congestive) heart failure; N18.9 Chronic kidney disease, unspecified; I25.10 Atherosclerotic heart disease of native coronary artery without angina pectoris; E78.5 Hyperlipidemia, unspecified; Z87.891 Personal history of nicotine dependence; J44.9 Chronic obstructive pulmonary disease, unspecified; Z79.899 Other long term (current) drug therapy; Z79.82 Long term (current) use of aspirin; Z88.8 Allergy status to other drugs, medicaments and biological substances; Z88.5 Allergy status to narcotic agent; Z91.09 Other allergy status, other than to drugs and biological substances
CPT/HCPCS: 00830; 99100; A9270-GY; C1781; J0690; J2250; J2370; J2405; J2704; J2765; J3010; J3490; J7120

== ENCOUNTER 2021-08-27 04:34 | Emergency (ER) | payer MEDICARE, OTHER ==
[2021-08-27] MEDS ORDERED: Heparin Sodium 5,000 Units/ML Vial IVPUSH STA (07:59)
[2021-08-27] MEDS ORDERED: Aspirin 81 MG Tab.Chew PO STA (07:59)
[2021-08-27] MEDS ORDERED: Heparin Sodium/D5W 25,000 UNITS/500 ML BAG IV SCH (08:00)
[2021-08-27 09:24] VITALS: BP 113/78; PULSE 74
== END 2021-08-27 09:20 ==
LOC: JD.ED 04:34
DX: I21.4 Non-ST elevation (NSTEMI) myocardial infarction (principal); J44.9 Chronic obstructive pulmonary disease, unspecified; I25.10 Atherosclerotic heart disease of native coronary artery without angina pectoris; I11.0 Hypertensive heart disease with heart failure; I50.9 Heart failure, unspecified; I25.2 Old myocardial infarction; M19.90 Unspecified osteoarthritis, unspecified site; Z86.16 Personal history of COVID-19; Z88.5 Allergy status to narcotic agent; Z91.048 Other nonmedicinal substance allergy status; Z88.1 Allergy status to other antibiotic agents; Z88.8 Allergy status to other drugs, medicaments and biological substances; Z79.82 Long term (current) use of aspirin; Z79.899 Other long term (current) drug therapy; Z79.02 Long term (current) use of antithrombotics/antiplatelets; Z87.891 Personal history of nicotine dependence
CPT/HCPCS: 36415; 71046; 80053; 83735; 83880; 84484; 85007; 85027; 85379; 93005; 96365; 96376; 99284; A9270; J1644; 93010; 99285